=== PATIENT | male | born 1960 | race Caucasian/White ===

== ENCOUNTER 2020-03-19 08:58 | Outpatient (RCR) | payer MEDICARE, MEDICAID, SELFPAY | END 2020-03-21 14:47 | disposition home or self-care (01) | LOC: HO.WCC 08:58 | PROVIDERS: Visit Provider Physician Assistant Surgical | DX: Z09 Encounter for follow-up examination after completed treatment for conditions other than malignant neoplasm (principal) | CPT/HCPCS: 99212 ==